=== PATIENT | male | born 1945 | race Caucasian/White ===

== ENCOUNTER 2017-06-01 12:26 | Inpatient (IN) | payer OTHER, MEDICARE ==
[~2017-06-01] VITALS: Ht 177.8 cm; Wt 106.6 kg
[2017-06-01] VITALS (8 sets, daily range): BP systolic 148–189; BP diastolic 74–98; PULSE 70–82; RESP 16–18; TEMP 98.1–98.7; O2SAT 95–98
[~2017-06-01 12:26] MED LIST: ALLO300T2 PO; ASPI81TA21 PO; CALTTAB PO; CO Q100C9 PO; FERR324T4 PO; GABA300C3 PO; GLUCTAB6 PO; LIPI10TA PO; METO25 PO; OMEP20TA39 PO; SUPETAB30 PO; TAMS0.4C67 PO; VITA100017 PO; VITA400C70 PO; WAL-10TA2 PO; [UNRECOGNIZED DRUG - OTHER]
[2017-06-01] MEDS ORDERED: SODIUM CHLOR 0.9% 1000 ML INJ 1,000 ML IV SCH (13:02)
[2017-06-01] MEDS ORDERED: ONDANSETRON HCL 4 MG/2 ML VIAL IVP ONE (13:15)
[2017-06-01] MEDS ORDERED: SODIUM CHLORIDE 0.9% FLUSH 10 ML FLUSH IV FLUSH PRN ×2 (13:15→17:45)
[2017-06-01] MEDS: MORPHINE SULFATE 4 MG/ML INJ IV PUSH PRN ×3 (13:35→17:07)
[2017-06-01 13:50] LABS: CHLORIDE 103 MEQ/L (98-107); POTASSIUM 3.9 MEQ/L (3.5-5.1); SODIUM (NA) 138 MEQ/L (136-145)
[2017-06-01] MEDS ORDERED: CLAR10CA3 PO (13:50)
[2017-06-01] MEDS ORDERED: THERH PO (13:50)
[2017-06-01] MEDS ORDERED: ALLO300T2 PO (13:50)
[2017-06-01] MEDS ORDERED: LIPI10TA PO (13:50)
[2017-06-01] MEDS ORDERED: TAMS5CAP PO (13:50)
[2017-06-01] MEDS ORDERED: VITA250T3 PO (13:50)
[2017-06-01] MEDS ORDERED: COEN1CAP PO (13:50)
[2017-06-01] MEDS ORDERED: ASPI81CH CHEW (13:50)
[2017-06-01] MEDS ORDERED: OMEP20TA PO (13:50)
[2017-06-01] MEDS ORDERED: METO25TA3 PO (13:50)
[2017-06-01] MEDS ORDERED: GABA300C5 PO (13:50)
[2017-06-01] MEDS ORDERED: CALTCHW5 PO (13:50)
[2017-06-01 13:54] LABS: ANION GAP 6 MEQ/L (5-15); BICARBONATE 29.3 MEQ/L (21.0-32.0); BLOOD UREA NITROGEN 18 MG/DL (7-18)
--- NOTE | 2017-06-01 13:54 | PD ---
HPI . Abdominal pain Chief Complaint: Abdominal Pain Time Seen by Provider: 13:02 Travel History International Travel<30 days: No Contact w/Intl Traveler<30days: No Traveled to known affect area: No History of Present Illness HPI This patient presents with a chief complaint of diffuse abdominal pain. Onset was 3 days ago after eating supper. The pain improved by the next day and he played golf. However, the pain became acutely worse at night's been getting progressively worse since that time. He states that he has not had a bowel movement in 3 days. He is eating but his appetite is poor. He has not had any vomiting. He states that his abdomen feels bloated and that his pants are very tight. He rates the pain 9/10. No modifying factors. Previous similar episodes. He has had a previous hernia repair. PFSH Past Medical History Hx Anticoagulant Therapy: Yes (BABY ASA DAILY) Arthritis: Yes Asthma: Yes ( CHILD) Heart Rhythm Problems: No Cancer: No Cardiac Catheterization: Yes (vessel X4) Cardiovascular Problems: Yes (BYPASS, HTN, CHOL) High Cholesterol: Yes Chest Pain: Yes Diabetes: No Diminished Hearing: No Endocrine: No Gastrointestinal Disorders: Yes GERD: Yes Genitourinary: No Hiatal Hernia: Yes Hypertension: Yes Immune Disorder: No Musculoskeletal: No Neurologic: No Reproductive: No Respiratory: No Immunizations Current: Yes Influenza Vaccination: Yes Past Surgical History Abdominal Surgery: Yes (INGUINAL HERNIA ) Cardiac Surgery: No Coronary Artery Bypass Graft: Yes (x4) Ear Surgery: No Endocrine Surgery: No Eye Surgery: No Genitourinary Surgery: No Oral Surgery: No Thoracic Surgery: Yes (LAMENECTOMY L3-5 ) Tonsillectomy: Yes Other Surgery: Yes (HERNIA REPAIR) Social History Alcohol Use: Yes (SOCIALLY) Tobacco Use: No Substance Use: No Allergies-Medications (Allergen,Severity, Reaction): Coded Allergies: No Known Allergies (Unverified , 06/01/17) Reported Meds & Prescriptions Reported Meds & Active Scripts Active Reported Therems-H (Multivitamin Hematinic Therapeutic) 1 Tab 1 Tab PO DAILY Therems-H (Multivitamin Hematinic Therapeutic) 1 Tab 1 Tab PO DAILY Flomax (Tamsulosin HCl) 0.4 Mg Cap 0.4 Mg PO DAILY Omeprazole 20 Mg Tab 20 Mg PO DAILY Metoprolol Tartrate 25 Mg Tab 12.5 Mg PO BID Claritin (Loratadine) 10 Mg Cap 10 Mg PO DAILY Co Q-10 (Coenzyme Q10 (Ubidecarenone)) 100 Mg Cap 1 Tab PO DAILY Gabapentin 300 Mg Cap 300 Mg PO DAILY Caltrate 600+D Chew (Calcium Carbonate-Vitamin D Chew) 600-400 Mg-Unit Chew 1 Tab PO DAILY Lipitor (Atorvastatin Calcium) 10 Mg Tab 10 Mg PO HS Aspirin 81 Mg Chew 81 Mg CHEW DAILY Vitamin C (Ascorbic Acid) 250 Mg Tab 500 Mg PO DAILY Allopurinol 300 Mg Tab 150 Mg PO DAILY Review of Systems Except as stated in HPI: all other systems reviewed are Neg General / Constitutional: No: Fever, Chills Cardiovascular: No: Chest Pain or Discomfort Respiratory: No: Shortness of Breath Gastrointestinal: Positive: Abdominal Pain, Constipation, No: Nausea, Vomiting , Diarrhea Genitourinary: No: Urgency, Frequency, Dysuria Physical Exam Narrative GENERAL: Patient is awake and alert. He looks uncomfortable. SKIN: warm/dry. No rash or lesions. HEAD: Normocephalic. Atraumatic. EYES: Pupils equal and round. No scleral icterus. No injection or drainage. ENT: No nasal bleeding or discharge. Mucous membranes pink and moist. NECK: Trachea midline. Full range of motion without pain.. CARDIOVASCULAR: Regular rate and rhythm. Heart sounds normal. Well-healed sternotomy scar. RESPIRATORY: No accessory muscle use. Clear to auscultation. Breath sounds equal bilaterally. GASTROINTESTINAL: Abdomen soft. Diffusely tender. No guarding or rebound. Bowel sounds present. MUSCULOSKELETAL: No obvious deformities. NEUROLOGICAL: Awake and alert. No obvious cranial nerve deficits. Motor grossly within normal limits. Normal speech. PSYCHIATRIC: Appropriate mood and affect; insight and judgment normal. Data Data Last Documented VS Vital Signs Date Time Temp Pulse Resp B/P (MAP) Pulse Ox O2 Delivery O2 Flow Rate FiO2 06/01/17 16:10 74 16 171/83 (112) 96 Room Air 06/01/17 12:29 98.1 Orders Orders Complete Blood Count With Diff (06/01/17 13:02) Comprehensive Metabolic Panel (06/01/17 13:02) Lipase (06/01/17 13:02) Lactic Acid (06/01/17 13:02) Ct Abd/Pel W Iv Contrast(Rout) (06/01/17 13:02) Iv Access Insert/Monitor (06/01/17 13:02) Morphine Inj (Morphine Inj) (06/01/17 13:15) Ondansetron Inj (Zofran Inj) (06/01/17 13:15) Sodium Chlor 0.9% 1000 Ml Inj (Ns 1000 M (06/01/17 13:02) Sodium Chloride 0.9% Flush (Ns Flush) (06/01/17 13:15) Sodium Chlor 0.9% 1000 Ml Inj (Ns 1000 M (06/01/17 14:15) Sodium Chlor 0.9% 1000 Ml Inj (Ns 1000 M (06/01/17 14:15) Iodixanol 320 Inj (Rad Ct) (Visipaque 32 (06/01/17 14:15) Urinalysis - C+S If Indicated (06/01/17 14:39) Consult Urology (06/01/17 ) Admit Order (Ed Use Only) (06/01/17 ) Vital Signs (Adult) Q4H (06/01/17 17:19) Diet Heart Healthy (06/01/17 Dinner) Activity Oob With Assistance (06/01/17 17:19) Notify Dr: Other (06/01/17 17:19) Labs Laboratory Tests Test 06/01/17 13:25 06/01/17 16:00 White Blood Count 17.0 TH/MM3 Red Blood Count 5.13 MIL/MM3 Hemoglobin 16.3 GM/DL Hematocrit 48.4 % Mean Corpuscular Volume 94.3 FL Mean Corpuscular Hemoglobin 31.8 PG Mean Corpuscular Hemoglobin Concent 33.8 % Red Cell Distribution Width 14.2 % Platelet Count 243 TH/MM3 Mean Platelet Volume 8.7 FL Neutrophils (%) (Auto) 78.5 % Lymphocytes (%) (Auto) 9.5 % Monocytes (%) (Auto) 10.8 % Eosinophils (%) (Auto) 0.3 % Basophils (%) (Auto) 0.9 % Neutrophils # (Auto) 13.3 TH/MM3 Lymphocytes # (Auto) 1.6 TH/MM3 Monocytes # (Auto) 1.8 TH/MM3 Eosinophils # (Auto) 0.1 TH/MM3 Basophils # (Auto) 0.2 TH/MM3 CBC Comment DIFF FINAL Differential Comment Blood Urea Nitrogen 18 MG/DL Creatinine 1.90 MG/DL Random Glucose 120 MG/DL Total Protein 7.9 GM/DL Albumin 3.5 GM/DL Calcium Level 9.3 MG/DL Alkaline Phosphatase 78 U/L Aspartate Amino Transf (AST/SGOT) 22 U/L Alanine Aminotransferase (ALT/SGPT) 25 U/L Total Bilirubin 1.6 MG/DL Sodium Level 138 MEQ/L Potassium Level 3.9 MEQ/L Chloride Level 103 MEQ/L Carbon Dioxide Level 29.3 MEQ/L Anion Gap 6 MEQ/L Estimat Glomerular Filtration Rate 35 ML/MIN Lactic Acid Level 1.3 mmol/L Lipase 166 U/L Urine Color YELLOW Urine Turbidity CLEAR Urine pH 5.5 Urine Specific [place] GREATER THAN 1.035 Urine Protein NEG mg/dL Urine Glucose (UA) NEG mg/dL Urine Ketones NEG mg/dL Urine Occult Blood NEG Urine Nitrite NEG Urine Bilirubin NEG Urine Leukocyte Esterase NEG Urine RBC 0-3 /hpf Urine WBC 0-2 /hpf Urine Squamous Epithelial Cells 0-5 /hpf Microscopic Urinalysis Comment CULT NOT INDICATED MDM Medical Decision Making Medical Screen Exam Complete: Yes Emergency Medical Condition: Yes Medical Record Reviewed: Yes (medical history is significant for hypertension, hyperlipidemia, coronary artery disease status post CABG and previous hernia repair.) Differential Diagnosis Differential diagnosis of abdominal pain includes but is not limited to gastritis, pancreatitis, hepatitis, gastroenteritis, gallbladder disease, constipation, urinary retention, UTI, peptic ulcer disease, diverticulitis or appendicitis Narrative Course This patient presents with abdominal pain and bloating. He has had no bowel movement in 3 days. Bowel obstruction needs to be ruled out. CBC & BMP Diagram 06/01/17 13:25 Total Protein 7.9, Albumin 3.5, Calcium Level 9.3, Alkaline Phosphatase 78, Aspartate Amino Transf (AST/SGOT) 22, Alanine Aminotransferase (ALT/SGPT) 25, Total Bilirubin 1.6 H He has developed ARF. LA 1.3 Sepsis Criteria SIRS Criteria (2 or more): WBC > 00292, < 4000 or > 10% bands Physician Communication Physician Communication Dr. Yi, urology, will see in consultation. He has no further recommendations acutely other than pain control Dr. Morrow, hospitalist, will admit. Diagnosis Primary Impression: Abdominal pain Qualified Codes: R10.84 - Generalized abdominal pain Additional Impressions: Leukocytosis Qualified Codes: D72.829 - Elevated white blood cell count, unspecified Acute renal failure Qualified Codes: N17.9 - Acute kidney failure, unspecified Admitting Information Admitting Physician Requests: Admit Condition: Stable Nancy Thomas MD Jun 01, 2017 13:54
[2017-06-01 13:55] LABS: AUTOMATED NEUTROPHIL # 13.3 TH/MM3 (1.8-7.7); BASOPHIL # 0.2 TH/MM3 (0-0.2); BASOPHIL % 0.9 % (0.0-2.0); EOSINOPHIL # 0.1 TH/MM3 (0-0.4); EOSINOPHIL % 0.3 % (0.0-4.0); HEMATOCRIT 48.4 % (39.0-51.0); LYMPH % 9.5 % (9.0-44.0); LYMPHOCYTE # 1.6 TH/MM3 (1.0-4.8); MEAN CELL VOLUME 94.3 FL (80.0-100.0); MEAN CORPUSCULAR HEMOGLOBIN 31.8 PG (27.0-34.0); MEAN CORPUSCULAR HGB CONC 33.8 % (32.0-36.0); MONO % 10.8 % (0.0-8.0); NEUT % 78.5 % (16.0-70.0); PLATELET COUNT 243 TH/MM3 (150-450); RED BLOOD COUNT 5.13 MIL/MM3 (4.50-5.90); RED CELL DISTRIBUTION WIDTH 14.2 % (11.6-17.2)
[2017-06-01 13:57] LABS: ALT (GPT) 25 U/L (12-78); AST (GOT) 22 U/L (15-37); GLOMERULAR FILTRATION RATE 35 ML/MIN (>89); HEMO FLAGS DIFF FINAL
[2017-06-01 13:58] LABS: TOTAL BILIRUBIN ADULT 1.6 MG/DL (0.2-1.0)
[2017-06-01 14:00] LABS: ALKALINE PHOSPHATASE 78 U/L (45-117)
[2017-06-01] MEDS ORDERED: IODIXANOL 320 MG/ML 10 ML VIAL (for Rad CT) IVCONTRAST ONE (14:15)
--- NOTE | 2017-06-01 14:36 | RADRPT ---
EXAM DATE/TIME: 06/01/2017 14:11 [facility] COMPARISON: No previous studies available for comparison. INDICATIONS : Abdominal pain radiating to the back. IV CONTRAST: 95 cc Visipaque (iodixanol) IV ORAL CONTRAST: No oral contrast ingested. RADIATION DOSE: 21.35 CTDIvol (mGy) MEDICAL HISTORY : Cardiovascular disease. Hypertension. Hernia, hiatal. SURGICAL HISTORY : Inguinal hernia repair. CABG ENCOUNTER: Initial ACUITY: 3 days PAIN SCALE: 4/10 LOCATION: abdomen TECHNIQUE: Volumetric scanning of the abdomen and pelvis was performed. Using automated exposure control and ad justment of the mA and/or kV according to patient size, radiation dose was kept as low as reasonably achievable to obtain optimal diagnostic quality images. DICOM format image data is available electro nically for review and comparison. FINDINGS: LOWER LUNGS: Linear parenchymal opacity in the left lung base. LIVER: Homogeneous density without lesion. There is no dilation of the biliary tree. No calcified gallston es. SPLEEN: Normal size without lesion. PANCREAS: Within normal limits. KIDNEYS: Moderate to severe right-sided hydronephrosis extending to the proximal ureter. There is a 6 x 9 mm d ensely calcified calculus in the proximal ureter. There is a second densely calcified apparent calcul us in the mid right ureter measuring 6 x 8 mm. There is extensive perinephric stranding on the right. Additional nonobstructing calyceal calculi are seen bilaterally. They range in size from 3-6 mm on t he right and 2-11 mm on the left. There are multiple bilateral renal cysts some of which are too smal l to fully characterize. Largest on the right is noted anteriorly near its superior pole and measures 2.1 cm largest on the left is noted laterally near the superior pole and measures 7.9 cm. ADRENAL GLANDS: Within normal limits. VASCULAR: There is no aortic aneurysm. BOWEL/MESENTERY: Moderate sigmoid diverticulosis with scattered diverticula in the descending colon. No significant in flammatory change to suggest diverticulitis. Bowel appears otherwise unremarkable. No free fluid or d rainable fluid collection. ABDOMINAL WALL: Within normal limits. RETROPERITONEUM: There is no lymphadenopathy. BLADDER: No wall thickening or mass. REPRODUCTIVE: Nonspecific prostatic enlargement. INGUINAL: There is no lymphadenopathy or hernia. MUSCULOSKELETAL: Degenerative spondylosis in the lower lumbar spine was prominently at L3-S1. CONCLUSION: 1. Moderate to severe right-sided hydronephrosis secondary to obstructing 6 x 9 mm densely calcified proximal ureteral calculus. Apparent second calculus more distally in the mid right ureter measuring 6 x 8 mm. 2. Multiple additional nonobstructing calyceal calculi ranging in size from 3-6 mm on the right and 2 -11 mm on the left. 3. Multiple bilateral renal cysts some of which are too small to fully characterize. Largest on the l eft measures up to 7.9 cm and the largest on the right measures up to 2.1 cm. 4. Additional ancillary findings include colonic diverticulosis and degenerative spondylosis of the l ower lumbar spine. Srini Gupta MD on June 01, 2017 at 14:24 Board Certified Radiologist. This report was verified electronically.
[2017-06-01] MEDS: SODIUM CHLOR 0.9% 1000 ML INJ 1,000 ML IV SCH ×6 (14:53→20:05)
[2017-06-01 16:24] LABS: BLOOD, URINE NEG (NEG); GLUCOSE,URINE NEG (NEG); KETONE, URINE NEG (NEG); NITRITE,URINE NEG (NEG); PH, URINE 5.5 (5.0-8.5)
[2017-06-01 17:00] LABS: URINE COLOR YELLOW (YELLW/STRAW)
[2017-06-01 17:01] LABS: COMMENT (UR) CULT NOT INDICATED; CULTURE IF INDICATED CULT NOT INDICATED; RBC, URINE 0-3 /hpf (0-3); SQUAMOUS EPITHELIAL CELL URINE 0-5 /hpf (0-5); WBC, URINE 0-2 /hpf (0-5)
[2017-06-01] MEDS ORDERED: ONDANSETRON HCL 4 MG/2 ML VIAL IVP PRN (17:45)
[2017-06-01] MEDS ORDERED: ACETAMINOPHEN 325 MG TAB PO PRN (17:45)
[2017-06-01] MEDS ORDERED: NALOXONE HCL 0.4 MG/ML AMP IV PUSH PRN (17:45)
[2017-06-01] MEDS ORDERED: PILL SPLITTER OTHER PRN (18:00)
--- NOTE | 2017-06-01 18:14 | HHI.HP ---
HPI Service [facility] Primary Care Physician [facility] Admission Diagnosis kidney stone, leukocytosis, ARF Diagnoses: Chief Complaint: Abdominal pain Travel History International Travel<30 Days: No Contact w/Intl Traveler <30 Da: No Traveled to Known Affected Are: No History of Present Illness This patient is a pleasant 71-year-old gentleman with history of coronary artery disease and gout who has had 10/10 abdominal pain improved with IV morphine here n the ER. Patient says that he had increasing discomfort over the last 3 days and the pain became worse today. He has not had a bowel movement in 3 days that this is not unusual to him as he has usually taken a probiotic for more regular bowel movements in every so often he has 3 days of not having a regular bowel movement. He has not eaten very much with says his appetite is poor the last 3 days as well. He notes no fevers or chills. He is not having nausea or vomiting. He has no dysuria. 5 years ago he was told he had kidney stones but they had not given him a problem. Here he did have a CT abdomen and pelvis which did show significant right sided hydronephrosis secondary to obstructing stone. He also has multiple cysts in the kidneys. Patient has come to the emergency for further evaluation. Review of Systems Constitutional: DENIES: Diaphoretic episodes, Fatigue, Fever, Weight gain, Weight loss, Chills, Dizziness, Change in appetite, Night Sweats Endocrine: DENIES: Heat/cold intolerance, Polydipsia, Polyuria, Polyphagia Eyes: DENIES: Blurred vision, Diplopia, Eye inflammation, Eye pain, Vision loss , Photosensitivity, Double Vision Ears, nose, mouth, throat: DENIES: Tinnitus, Hearing loss, Vertigo, Nasal discharge, Oral lesions, Throat pain, Hoarseness, Ear Pain, Running Nose, Epistaxis, Sinus Pain, Toothache, Odynophagia Respiratory: DENIES: Apneas, Cough, Snoring, Wheezing, Hemoptysis, Sputum production, Shortness of breath Cardiovascular: DENIES: Chest pain, Palpitations, Syncope, Dyspnea on Exertion , PND, Lower Extremity Edema, Orthopnea, Claudication Gastrointestinal: COMPLAINS OF: Abdominal pain, DENIES: Black stools, Bloody stools, Constipation, Diarrhea, Nausea, Vomiting, Difficulty Swallowing, Anorexia Genitourinary: DENIES: Sexual dysfunction, Urinary frequency, Urinary incontinence, Urgency, Hematuria, Dysuria, Nocturia, Penile Discharge, Testicular Pain, Testicular Swelling Musculoskeletal: DENIES: Joint pain, Muscle aches, Stiffness, Joint Swelling, Back pain, Neck pain Integumentary: COMPLAINS OF: Rash (left knee and left elbow, salmon colored macular discoloration similar to psoriasis), DENIES: Abnormal pigmentation, Nail changes, Pruritus Hematologic/lymphatic: DENIES: Bruising, Lymphadenopathy Immunologic/allergic: DENIES: Eczema, Urticaria Neurologic: DENIES: Abnormal gait, Headache, Localized weakness, Paresthesias, Seizures, Speech Problems, Tremor, Poor Balance Psychiatric: DENIES: Anxiety, Confusion, Mood changes, Depression, Hallucinations, Agitation, Suicidal Ideation, Homicidal Ideation, Delusions Except as stated in HPI: all other systems reviewed are Neg Past Family Social History Past Medical History GERD Gout Chronic allergies Coronary artery disease Benign prostatic hyperplasia Hyperlipidemia Past Surgical History Laminectomy Hernia repair and cardiac bypass Tonsillectomy Reported Medications Reviewed in the EMR Allergies: Coded Allergies: No Known Allergies (Unverified , 06/01/17) Active Ordered Medications Reviewed in the EMR Family History Mother of unknown causes, father had some type of dementia Social History Reviewed and patient denies tobacco or alcohol dependency, golfs daily Physical Exam Vital Signs Vital Signs Date Time Temp Pulse Resp B/P (MAP) Pulse Ox O2 Delivery O2 Flow Rate FiO2 06/01/17 17:21 16 06/01/17 16:10 74 16 171/83 (112) 96 Room Air 06/01/17 15:30 77 16 170/89 (116) 95 Room Air 06/01/17 14:55 78 16 183/98 (126) 98 Room Air 06/01/17 13:37 77 18 170/90 (116) 98 Room Air 06/01/17 12:29 98.1 74 16 189/86 (120) 95 Physical Exam GENERAL: This is a well-nourished, well-developed patient, in no apparent distress. SKIN: No rashes, ecchymoses or lesions. Cool and dry. HEAD: Atraumatic. Normocephalic. No temporal or scalp tenderness. EYES: Pupils equal round and reactive. Extraocular motions intact. No scleral icterus. No injection or drainage. ENT: Nose without bleeding, purulent drainage or septal hematoma. Throat without erythema, tonsillar hypertrophy or exudate. Uvula midline. Airway patent. NECK: Trachea midline. No JVD or lymphadenopathy. Supple, nontender, no meningeal signs. CARDIOVASCULAR: Regular rate and rhythm without murmurs, gallops, or rubs. RESPIRATORY: Clear to auscultation. Breath sounds equal bilaterally. No wheezes , rales, or rhonchi. GASTROINTESTINAL: hypoactive BS, Abdomen soft, non-tender, nondistended. No hepato-splenomegaly, or palpable masses. No guarding. Flank pain MUSCULOSKELETAL: Extremities without clubbing, cyanosis, or edema. No joint tenderness, effusion, or edema noted. No calf tenderness. Negative Homans sign bilaterally. NEUROLOGICAL: Awake and alert. Cranial nerves II through XII intact. Motor and sensory grossly within normal limits. Five out of 5 muscle strength in all muscle groups. Normal speech. Laboratory Laboratory Tests Test 06/01/17 13:25 06/01/17 16:00 White Blood Count 17.0 Red Blood Count 5.13 Hemoglobin 16.3 Hematocrit 48.4 Mean Corpuscular Volume 94.3 Mean Corpuscular Hemoglobin 31.8 Mean Corpuscular Hemoglobin Concent 33.8 Red Cell Distribution Width 14.2 Platelet Count 243 Mean Platelet Volume 8.7 Neutrophils (%) (Auto) 78.5 Lymphocytes (%) (Auto) 9.5 Monocytes (%) (Auto) 10.8 Eosinophils (%) (Auto) 0.3 Basophils (%) (Auto) 0.9 Neutrophils # (Auto) 13.3 Lymphocytes # (Auto) 1.6 Monocytes # (Auto) 1.8 Eosinophils # (Auto) 0.1 Basophils # (Auto) 0.2 CBC Comment DIFF FINAL Differential Comment Blood Urea Nitrogen 18 Creatinine 1.90 Random Glucose 120 Total Protein 7.9 Albumin 3.5 Calcium Level 9.3 Alkaline Phosphatase 78 Aspartate Amino Transf (AST/SGOT) 22 Alanine Aminotransferase (ALT/SGPT) 25 Total Bilirubin 1.6 Sodium Level 138 Potassium Level 3.9 Chloride Level 103 Carbon Dioxide Level 29.3 Anion Gap 6 Estimat Glomerular Filtration Rate 35 Lactic Acid Level 1.3 Lipase 166 Urine Color YELLOW Urine Turbidity CLEAR Urine pH 5.5 Urine Specific [place] GREATER THAN 1.035 Urine Protein NEG Urine Glucose (UA) NEG Urine Ketones NEG Urine Occult Blood NEG Urine Nitrite NEG Urine Bilirubin NEG Urine Leukocyte Esterase NEG Urine RBC 0-3 Urine WBC 0-2 Urine Squamous Epithelial Cells 0-5 Microscopic Urinalysis Comment CULT NOT INDICATED Result Diagram: 06/01/17 1325 06/01/17 1325 Imaging Last Impressions Abdomen/Pelvis CT 06/01/17 1302 Signed Impressions: Service Date/Time: Thursday, June 01, 2017 14:11 - CONCLUSION: 1. Moderate to severe right-sided hydronephrosis secondary to obstructing 6 x 9 mm densely calcified proximal ureteral calculus. Apparent second calculus more distally in the mid right ureter measuring 6 x 8 mm. 2. Multiple additional nonobstructing calyceal calculi ranging in size from 3-6 mm on the right and 2-11 mm on the left. 3. Multiple bilateral renal cysts some of which are too small to fully characterize. Largest on the left measures up to 7.9 cm and the largest on the right measures up to 2.1 cm. 4. Additional ancillary findings include colonic diverticulosis and degenerative spondylosis of the lower lumbar spine. Srini Gupta MD Caprini VTE Risk Assessment Caprini VTE Risk Assessment: Mod/High Risk (score >= 2) Caprini Risk Assessment Model Point Value = 1 Point Value = 2 Point Value = 3 Point Value = 5 Age 41-60 Minor surgery BMI > 25 kg/m2 Swollen legs Varicose veins or History of unexplained or recurrent spontaneous Oral contraceptives or hormone replacement Sepsis (< 1 month) Serious lung disease, including pneumonia (< 1 month) Abnormal pulmonary function Acute myocardial infarction Congestive heart failure (< 1 month) History of inflammatory bowel disease Medical patient at bed rest Age 61-74 Arthroscopic surgery Major open surgery (> 45 min) Laparoscopic surgery (> 45 min) Malignancy Confined to bed (> 72 hours) Immobilizing plaster cast Central venous access Age >= 75 History of VTE Family history of VTE Factor V Leiden Prothrombin [id number] Lupus anticoagulant Anticardiolipin antibodies Elevated serum homocysteine Heparin-induced thrombocytopenia Other congenital or acquired thrombophilia Stroke (< 1 month) Elective arthroplasty Hip, pelvis, or leg fracture Acute spinal cord injury (< 1 month) Prophylaxis Regimen Total Risk Factor Score Risk Level Prophylaxis Regimen 0-1 Low Early ambulation 2 Moderate Order ONE of the following: *Sequential Compression Device (SCD) *Heparin 5000 units SQ BID 3-4 Higher Order ONE of the following medications: *Heparin 5000 units SQ TID *Enoxaparin/Lovenox 40 mg SQ daily (WT < 150 kg, CrCl > 30 mL/min) *Enoxaparin/Lovenox 30 mg SQ daily (WT < 150 kg, CrCl > 10-29 mL/min) *Enoxaparin/Lovenox 30 mg SQ BID (WT < 150 kg, CrCl > 30 mL/min) AND/OR *Sequential Compression Device (SCD) 5 or more Highest Order ONE of the following medications: *Heparin 5000 units SQ TID (Preferred with Epidurals) *Enoxaparin/Lovenox 40 mg SQ daily (WT < 150 kg, CrCl > 30 mL/min) *Enoxaparin/Lovenox 30 mg SQ daily (WT < 150 kg, CrCl > 10-29 mL/min) *Enoxaparin/Lovenox 30 mg SQ BID (WT < 150 kg, CrCl > 30 mL/min) AND *Sequential Compression Device (SCD) Assessment and Plan Problem List: (1) Uropathy, obstructive ICD Code: N13.9 - Obstructive and reflux uropathy, unspecified Plan: right sided hydronephrosis with 6x9 obstructing stone IVF IV Morphine Urology 'strainer (2) GERD (gastroesophageal reflux disease) ICD Code: K21.9 - GERD (gastroesophageal reflux disease) Status: Acute Plan: Continue with proton pump inhibitor (3) HTN (hypertension) ICD Code: I10 - HTN (hypertension) Status: Acute Plan: Continue metoprolol,hydralazine as needed (4) Acute renal failure ICD Code: N17.9 - Acute kidney failure, unspecified Status: Acute Plan: Likely obstructive, continue IV fluids and follow for stone evaluation by urology Avoid further nephrotoxic injury (5) Coronary artery disease ICD Code: I25.10 - Atherosclerotic heart disease of [place] coronary artery without angina pectoris Plan: Patient taking aspirin, Lipitor, metoprolol History of cardiac bypass Assessment and Plan Plan of care to be determined by Hospital course Code Status Full code Discussed Condition With Patient, GRACIE Salazar Physician Certification 2 Midnight Certification Type: Admission for Inpatient Services Order for Inpatient Services The services are ordered in accordance with Medicare regulations or non- Medicare payer requirements, as applicable. In the case of services not specified as inpatient-only, they are appropriately provided as inpatient services in accordance with the 2-midnight benchmark. Estimated LOS (days): 3 3 days is the estimated time the patient will need to remain in the hospital, assuming treatment plan goals are met and no additional complications. Post-Hospital Plan: Home Problem Qualifiers (1) Acute renal failure: Qualified Codes: N17.9 - Acute kidney failure, unspecified Erica Morrow MD Jun 01, 2017 18:14
[2017-06-01] MEDS ORDERED: hydrALAZINE HCL 20 MG/ML VIAL IV PUSH PRN (18:15)
[2017-06-01] MEDS: TAMSULOSIN HCL 0.4 MG CAP PO SCH (18:29)
[2017-06-01] MEDS: PANTOPRAZOLE SOD 20 MG DELAYED RELEASE TAB PO SCH (18:29)
[2017-06-01] MEDS: SODIUM CHLORIDE 0.9% FLUSH 10 ML FLUSH IV FLUSH SCH (21:55)
[2017-06-01] MEDS: DOCUSATE SODIUM 100 MG CAP PO SCH (21:57)
[2017-06-01] MEDS: LACTOBACILLUS ACIDOPHILUS TAB PO SCH (21:57)
[2017-06-01] MEDS: METOPROLOL TARTRATE 25 MG TAB PO SCH (21:57)
[2017-06-01] MEDS: MORPHINE SULFATE 2 MG/ML INJ IV PUSH PRN (23:46)
[2017-06-02] VITALS: BP 144/88; PULSE 77; RESP 20; TEMP 98.7; O2SAT 93
[2017-06-02] MEDS: SODIUM CHLOR 0.9% 1000 ML INJ 1,000 ML IV SCH ×3 (04:19→23:13)
[2017-06-02] MEDS: MORPHINE SULFATE 2 MG/ML INJ IV PUSH PRN ×2 (06:33→12:00)
[2017-06-02 06:40] LABS: AUTOMATED NEUTROPHIL # 12.1 TH/MM3 (1.8-7.7); BASOPHIL # 0.1 TH/MM3 (0-0.2); BASOPHIL % 0.5 % (0.0-2.0); EOSINOPHIL # 0.1 TH/MM3 (0-0.4); EOSINOPHIL % 0.6 % (0.0-4.0); HEMATOCRIT 42.3 % (39.0-51.0); LYMPH % 11.7 % (9.0-44.0); LYMPHOCYTE # 1.8 TH/MM3 (1.0-4.8); MEAN CELL VOLUME 92.4 FL (80.0-100.0); MEAN CORPUSCULAR HEMOGLOBIN 30.9 PG (27.0-34.0); MEAN CORPUSCULAR HGB CONC 33.4 % (32.0-36.0); MONO % 9.1 % (0.0-8.0); NEUT % 78.1 % (16.0-70.0); PLATELET COUNT 224 TH/MM3 (150-450); RED BLOOD COUNT 4.57 MIL/MM3 (4.50-5.90); RED CELL DISTRIBUTION WIDTH 13.6 % (11.6-17.2); WHITE BLOOD COUNT 15.5 TH/MM3 (4.0-11.0)
--- NOTE | 2017-06-02 06:45 | RADRPT ---
EXAM DATE/TIME: 06/02/2017 05:40 [facility] COMPARISON: CT ABDOMEN & PELVIS W CONTRAST, June 01, 2017, 14:11. INDICATIONS : Evaluate for renal calculi. MEDICAL HISTORY : Gastroesophageal reflux disease. SURGICAL HISTORY : Hernia repair. ENCOUNTER: Subsequent ACUITY: 2 days PAIN SCORE: 4/10 LOCATION: abdomen, all quadrants. FINDINGS: Supine view of the abdomen was performed. Copious amount of stool limits evaluation. Gaseous distenti on of multiple bowel loops. A 6 mm right-sided and 11 mm left sided renal calculi are seen. No abnorm al massesor organomegaly is seen. The osseous structures are unremarkable. CONCLUSION: 1. Bilateral renal calculi are difficult to visualize. Deric Joel MD on June 02, 2017 at 6:41 Board Certified Radiologist. This report was verified electronically.
[2017-06-02 06:48] LABS: CHLORIDE 107 MEQ/L (98-107); SODIUM (NA) 140 MEQ/L (136-145)
[2017-06-02 06:50] LABS: HEMO FLAGS DIFF FINAL
[2017-06-02 07:39] LABS: ALKALINE PHOSPHATASE 63 U/L (45-117); ALT (GPT) 17 U/L (12-78); ANION GAP 7 MEQ/L (5-15); AST (GOT) 18 U/L (15-37); BICARBONATE 25.8 MEQ/L (21.0-32.0); BLOOD UREA NITROGEN 16 MG/DL (7-18); GLOMERULAR FILTRATION RATE 40 ML/MIN (>89); TOTAL BILIRUBIN ADULT 1.9 MG/DL (0.2-1.0)
[2017-06-02 08:00] VITALS: BP 175/87; PULSE 74; RESP 18; TEMP 99.3; O2SAT 95
[2017-06-02] MEDS: SODIUM CHLORIDE 0.9% FLUSH 10 ML FLUSH IV FLUSH SCH ×2 (09:00→20:21)
[2017-06-02] MEDS: DOCUSATE SODIUM 100 MG CAP PO SCH ×2 (09:34→20:24)
[2017-06-02] MEDS: LACTOBACILLUS ACIDOPHILUS TAB PO SCH ×2 (09:34→20:24)
[2017-06-02] MEDS: METOPROLOL TARTRATE 25 MG TAB PO SCH ×2 (09:34→20:24)
[2017-06-02] MEDS: TAMSULOSIN HCL 0.4 MG CAP PO SCH (09:34)
[2017-06-02] MEDS: ALLOPURINOL 300 MG TAB PO SCH (09:35)
[2017-06-02] MEDS: PANTOPRAZOLE SOD 20 MG DELAYED RELEASE TAB PO SCH (09:35)
[2017-06-02 12:00] VITALS: BP 144/74; PULSE 74; RESP 16; TEMP 99; O2SAT 97
--- NOTE | 2017-06-02 13:25 | HHI.PR ---
Subjective Remarks The patient said that he has some abdominal pain in the lower portion that comes in waves. She says the pain medication does not work that well. He is hoping to speak with a urologist soon. He said that his urine has become more normal without any blood in it. Objective Vitals Vital Signs Date Time Temp Pulse Resp B/P (MAP) Pulse Ox O2 Delivery O2 Flow Rate FiO2 06/02/17 08:00 99.3 74 18 175/87 (116) 95 06/02/17 00:00 98.7 77 20 144/88 (106) 93 06/02/17 00:00 98.7 77 20 144/88 (106) 93 06/01/17 20:00 98.7 76 18 148/74 (98) 96 06/01/17 20:00 98.7 76 18 148/74 (98) 96 06/01/17 18:44 06/01/17 18:35 98.7 70 18 154/95 (114) 96 06/01/17 18:17 82 16 170/88 (115) 97 Room Air 06/01/17 17:21 16 06/01/17 16:10 74 16 171/83 (112) 96 Room Air 06/01/17 15:30 77 16 170/89 (116) 95 Room Air 06/01/17 14:55 78 16 183/98 (126) 98 Room Air 06/01/17 13:37 77 18 170/90 (116) 98 Room Air I/O 06/01/17 06/01/17 06/01/17 06/02/17 06/02/17 06/02/17 07:00 15:00 23:00 07:00 15:00 23:00 Intake Total 3360 ml Output Total 180 ml Balance 3180 ml Intake Oral 360 ml IV Total 3000 ml Output Urine Total 180 ml # Voids 2 Result Diagram: 06/02/17 0555 06/02/17 0555 Imaging Last Impressions Abdomen X-Ray 06/02/17 0600 Signed Impressions: Service Date/Time: Friday, June 02, 2017 05:40 - CONCLUSION: 1. Bilateral renal calculi are difficult to visualize. Deric Joel MD Abdomen/Pelvis CT 06/01/17 1302 Signed Impressions: Service Date/Time: Thursday, June 01, 2017 14:11 - CONCLUSION: 1. Moderate to severe right-sided hydronephrosis secondary to obstructing 6 x 9 mm densely calcified proximal ureteral calculus. Apparent second calculus more distally in the mid right ureter measuring 6 x 8 mm. 2. Multiple additional nonobstructing calyceal calculi ranging in size from 3-6 mm on the right and 2-11 mm on the left. 3. Multiple bilateral renal cysts some of which are too small to fully characterize. Largest on the left measures up to 7.9 cm and the largest on the right measures up to 2.1 cm. 4. Additional ancillary findings include colonic diverticulosis and degenerative spondylosis of the lower lumbar spine. Srini Gupta MD Objective Remarks GENERAL: This is a well-nourished, well-developed patient, in no apparent distress. SKIN: No rashes, ecchymoses or lesions. Cool and dry. HEAD: Atraumatic. Normocephalic. No temporal or scalp tenderness. EYES: Pupils equal round and reactive. Extraocular motions intact. No scleral icterus. No injection or drainage. ENT: Nose without bleeding, purulent drainage or septal hematoma. Throat without erythema, tonsillar hypertrophy or exudate. Uvula midline. Airway patent. NECK: Trachea midline. No JVD or lymphadenopathy. Supple, nontender, no meningeal signs. CARDIOVASCULAR: Regular rate and rhythm without murmurs, gallops, or rubs. RESPIRATORY: Clear to auscultation. Breath sounds equal bilaterally. No wheezes , rales, or rhonchi. GASTROINTESTINAL: Abdomen soft, slightly tender in the lower quadrants, nondistended. No hepato-splenomegaly, or palpable masses. No guarding. MUSCULOSKELETAL: Extremities without clubbing, cyanosis, or edema. No joint tenderness, effusion, or edema noted. NEUROLOGICAL: Awake and alert. Cranial nerves II through XII intact. Motor and sensory grossly within normal limits. Five out of 5 muscle strength in all muscle groups. Normal speech. Medications and IVs Current Medications Medications (Trade) Dose Ordered Sig/Fahad Route Start Time Stop Time Status Last Admin Sodium Chloride 1,000 ml @ 100 mls/hr Q10H IV 06/01/17 17:45 06/02/17 04:19 (NS Flush) 2 ml UNSCH PRN IV FLUSH 06/01/17 17:45 (NS Flush) 2 ml BID IV FLUSH 06/01/17 21:00 (Tylenol) 650 mg Q4H PRN PO 06/01/17 17:45 (Zofran Inj) 4 mg Q6H PRN IVP 06/01/17 17:45 (Narcan Inj) 0.4 mg UNSCH PRN IV PUSH 06/01/17 17:45 (Morphine Inj) 2 mg Q4H PRN IV PUSH 06/01/17 17:45 06/02/17 12:00 (Zyloprim) 150 mg DAILY PO 06/02/17 09:00 06/02/17 09:35 (Lopressor) 12.5 mg BID PO 06/01/17 21:00 06/02/17 09:34 (Flomax) 0.4 mg DAILY PO 06/01/17 18:00 06/02/17 09:34 (Protonix) 20 mg DAILY PO 06/01/17 18:00 06/02/17 09:35 (Pill Splitter) 1 ea UNSCH PRN OTHER 06/01/17 18:00 (Colace) 100 mg BID PO 06/01/17 21:00 06/02/17 09:34 (Apresoline Inj) 5 mg Q4H PRN IV PUSH 06/01/17 18:15 (Lactinex) 1 tab Q12HR PO 06/01/17 21:00 06/02/17 09:34 A/P Problem List: (1) Uropathy, obstructive ICD Code: N13.9 - Obstructive and reflux uropathy, unspecified (2) GERD (gastroesophageal reflux disease) ICD Code: K21.9 - GERD (gastroesophageal reflux disease) Status: Acute (3) HTN (hypertension) ICD Code: I10 - HTN (hypertension) Status: Acute (4) Acute renal failure ICD Code: N17.9 - Acute kidney failure, unspecified Status: Acute (5) Coronary artery disease ICD Code: I25.10 - Atherosclerotic heart disease of [place] coronary artery without angina pectoris Assessment and Plan Uropathy Obstructive. CT showed: Moderate to severe right-sided hydronephrosis secondary to obstructing 6 x 9 mm densely calcified proximal ureteral calculus; Apparent second calculus more distally in the mid right ureter measuring 6 x 8 mm; Multiple additional nonobstructing calyceal calculi ranging in size from 3-6 mm on the right and 2-11 mm on the left; Multiple bilateral renal cysts some of which are too small to fully characterize; Largest on the left measures up to 7.9 cm and the largest on the right measures up to 2.1 cm. - IVFs. - IV Morphine. - Urine strainer. - urology consult pending. HTN Blood pressure has been elevated. Exacerbated by pain. - Continue metoprolol. - hydralazine as needed. - pain control. Acute renal failure Likely obstructive, s/t above. - continue IV fluids and follow for stone evaluation by urology. - Avoid further nephrotoxic injury. Coronary artery disease History of cardiac bypass. - continue home regimen. PPx: SCDs Discharge Planning Awaiting urology evaluation Problem Qualifiers (1) Acute renal failure: Qualified Codes: N17.9 - Acute kidney failure, unspecified Quan Ralph DO Jun 02, 2017 13:24
[2017-06-02] MEDS: MORPHINE SULFATE 4 MG/ML INJ IV PRN (15:29)
[2017-06-02 16:00] VITALS: BP 173/94; PULSE 79; RESP 18; TEMP 98.6; O2SAT 97
[2017-06-02] MEDS ORDERED: POLYETHYLENE GLYCOL 17 GM PKG PO PRN (18:00)
[2017-06-02] MEDS: ACETAMINOPHEN 1000 MG/100 ML 100 ML IV SCH (18:21)
--- NOTE | 2017-06-02 18:54 | MB ---
cc: KATHY PATTERSON MD DATE OF CONSULTATION 06/02/17 REASON FOR CONSULTATION 1. Right ureteral stone with mild hydronephrosis 2. Right flank pain 3. Bilateral nonobstructing stones 4. Renal cysts HISTORY OF PRESENT ILLNESS Mr. Vaca is a very pleasant 71-year-old gentleman who has history of coronary artery disease who presented to the ER yesterday with complaints of right-sided flank pain in the range of his upper abdomen the last two days described as sharp and stabbing, 10/10 at its worst. In the emergency room, he was given a dose of IV morphine which did improve the pain. He does states he has not had a bowel movement in the last three days which is unusual as he usually has a regular bowel movement every day. He also has a poor appetite the last few days as well. Denied any fevers, chills, no nausea or vomiting, dysuria, hematuria. In the emergency room, he had a CT of abdomen and pelvis without contrast done which showed nonobstructive stones as well as two separate right ureteral stones approximately 6 mm in size causing mild right hydronephrosis. Also, he was found to have a simple renal cyst. The patient subsequently was admitted for further evaluation. The patient states he was told five years ago that he had kidney stones, but he was asymptomatic at that time. Denies any family history of kidney stones or family history of prostate cancer. Currently his flank pain is much improved, but he is complaining of mostly epigastric discomfort and feels bloated. He denies any problems a urinating in the past. He states he has a good stream and has never had blood in his urine. He only gets up twice a night. REVIEW OF SYSTEMS See HPI otherwise all systems reviewed otherwise are negative. PAST MEDICAL HISTORY 1. Gastroesophageal reflux disease, 2. Gout, 3. Coronary artery disease 4. Benign prostatic hypertrophy 5. Hyperlipidemia PAST SURGICAL HISTORY 1. Cardiac bypass 2. Hernia repair 3. Laminectomy, 4. Tonsillectomy 5. Circumcision. ALLERGIES NO KNOWN DRUG ALLERGIES MEDICATIONS Home include 1. Claritin 2. Aspirin 81 mg daily. 3. Metoprolol 12.5 mg p.o. b.i.d. 4. Omeprazole 20 mg p.o. daily. 5. Allopurinol 150 mg p.o. daily. FAMILY HISTORY Denies urolithiasis or genitourinary malignancy. SOCIAL HISTORY Denies tobacco, alcohol or illicit drug use. He does golf daily. PHYSICAL EXAMINATION VITAL SIGNS: Temperature 99, pulse 74, respiratory rate 16, BP 144/74, 97% room air. GENERAL: He is alert and oriented times three in no apparent stress, pleasant cooperative gentleman who appears his stated age. HEENT: Normocephalic, atraumatic. NECK: Supple, trachea midline. No JVD. Eyes - no scleral icterus. Extraocular muscles intact. SKIN: Warm and dry. No ulcers or rashes seen. Mucous membranes pink and moist. LUNGS: Clear to auscultation bilaterally No wheezes, rales or rhonchi. HEART: Regular rate and rhythm without murmurs, gallops or rubs. ABDOMEN: Soft but slightly distended, nontender, positive bowel sounds. GENITOURINARY:: There is no CVA test bilaterally. Penis is circumcised. Testes descended bilaterally, normal in size and consistency without mass. RECTAL: Exam deferred at this time. EXTREMITIES: Nontender. No clubbing, cyanosis or edema. PSYCHIATRIC: Normal affect. Answers questions appropriately. NEUROLOGIC: Cranial nerves II-XII intact. Strengths 5/5 in all four extremities. LABORATORY DATA White count 15.5, hemoglobin 14.1, hematocrit 42.3, platelet count 224. Sodium 140, potassium 4.0, chloride 107, bicarb 25.5, BUN 16, creatinine 1.70, GFR 40. Urine was completely negative. IMAGING STUDIES CT pelvis without contrast images were reviewed, agree with radiologist's report. The patient has bilateral simple renal cysts, also has bilateral nonobstructing stones with the largest one on the left side approximately 1 cm in size. He also has right ureteral calculi one approximately 9 mm, the other one approximately 8 mm in size with mild hydronephrosis. ASSESSMENT The patient is a 71-year-old male who was admitted with abdominal pain and was found to have right ureteral calculi with mild hydronephrosis as well as bilateral nonobstructing stones. PLAN We will give patient regular diet and we will manage conservatively at this time. We will adjust his pain medications and give him Oxycodone and IV acetaminophen for pain. We will continue to strain his urine. Continue Flomax and IV fluids. He does have significant constipation so we will add MiraLax to help improve his bowel movements. Thank you for this consult. We will follow along with you. MD JEREMIAS Dey/ /5:58 PM /6:29 PM
[2017-06-02 20:00] VITALS: BP 132/64; PULSE 74; RESP 20; TEMP 98.2; O2SAT 94
[2017-06-03] MEDS: ACETAMINOPHEN 1000 MG/100 ML 100 ML IV SCH ×2 (00:15→06:16)
[2017-06-03 05:48] VITALS: BP 209/109; PULSE 73
[2017-06-03] MEDS: MORPHINE SULFATE 4 MG/ML INJ IV PRN (06:05)
[2017-06-03 06:45] VITALS: BP 172/76
[2017-06-03 07:43] LABS: HEMATOCRIT 39.9 % (39.0-51.0); MEAN CELL VOLUME 92.1 FL (80.0-100.0); MEAN CORPUSCULAR HGB CONC 33.7 % (32.0-36.0); PLATELET COUNT 210 TH/MM3 (150-450); RED BLOOD COUNT 4.34 MIL/MM3 (4.50-5.90); RED CELL DISTRIBUTION WIDTH 13.4 % (11.6-17.2); REVIEW FLAG FINAL; WHITE BLOOD COUNT 14.6 TH/MM3 (4.0-11.0)
[2017-06-03 07:53] LABS: POTASSIUM 3.5 MEQ/L (3.5-5.1)
[2017-06-03 08:00] VITALS: BP 164/82; PULSE 65; RESP 18; TEMP 97; O2SAT 94
[2017-06-03 08:08] LABS: BICARBONATE 24.5 MEQ/L (21.0-32.0); MAGNESIUM 1.9 MG/DL (1.5-2.5)
[2017-06-03] MEDS: METOPROLOL TARTRATE 25 MG TAB PO SCH (09:42)
[2017-06-03] MEDS: DOCUSATE SODIUM 100 MG CAP PO SCH (09:42)
[2017-06-03] MEDS: SODIUM CHLORIDE 0.9% FLUSH 10 ML FLUSH IV FLUSH SCH (09:42)
[2017-06-03] MEDS: TAMSULOSIN HCL 0.4 MG CAP PO SCH (09:42)
[2017-06-03] MEDS: ALLOPURINOL 300 MG TAB PO SCH (09:42)
[2017-06-03] MEDS: PANTOPRAZOLE SOD 20 MG DELAYED RELEASE TAB PO SCH (09:42)
[2017-06-03] MEDS: LACTOBACILLUS ACIDOPHILUS TAB PO SCH (09:42)
[2017-06-03] MEDS: SODIUM CHLOR 0.9% 1000 ML INJ 1,000 ML IV SCH (09:45)
[2017-06-03] MEDS ORDERED: OXYC-392 PO (11:01)
--- NOTE | 2017-06-03 11:06 | HHI.DCPOC ---
Discharge Care Plan Diagnosis: (1) Acute renal failure (2) Uropathy, obstructive Goals to Promote Your Health * To prevent worsening of your condition and complications * To maintain your health at the optimal level Directions to Meet Your Goals Take your medications as prescribed Follow your dietary instruction Follow activity as directed Keep your appointments as scheduled Take your immunizations and boosters as scheduled If your symptoms worsen call your PCP, if no PCP go to Urgent Care Center or Emergency Room Smoking is Dangerous to Your Health. Avoid second hand smoke Call the 24-hour hour crisis hotline for domestic abuse at Quan Ralph DO Jun 03, 2017 11:06
[2017-06-03] MEDS ORDERED: CEFU1TAB42 PO (11:07)
--- NOTE | 2017-06-03 11:12 | HHI.PR ---
Subjective Remarks The patient said that he felt much better and wanted to go home. He rated his pain as a 2 out of 10. He said he is urinating all the time. He was ambulating without difficulty. [facility] Discussed with nursing at the bedside. Objective Vitals Vital Signs Date Time Temp Pulse Resp B/P (MAP) Pulse Ox O2 Delivery O2 Flow Rate FiO2 06/03/17 08:00 97.0 65 18 164/82 (109) 94 06/03/17 06:45 172/76 (108) Automatic Cuff 06/03/17 05:48 73 209/109 (142) 06/02/17 20:00 98.2 74 20 132/64 (86) 94 06/02/17 16:00 98.6 79 18 173/94 (120) 97 06/02/17 12:00 99.0 74 16 144/74 (97) 97 I/O 06/02/17 06/02/17 06/02/17 06/03/17 06/03/17 06/03/17 07:00 15:00 23:00 07:00 15:00 23:00 Intake Total 1893 ml 983 ml 120 ml Output Total 250 ml Balance 1893 ml 983 ml -130 ml Intake Oral 600 ml 120 ml IV Total 1893 ml 383 ml Output Urine Total 250 ml Result Diagram: 06/03/17 0648 06/03/17 0648 Imaging Last Impressions Abdomen X-Ray 06/02/17 0600 Signed Impressions: Service Date/Time: Friday, June 02, 2017 05:40 - CONCLUSION: 1. Bilateral renal calculi are difficult to visualize. Deric Joel MD Abdomen/Pelvis CT 06/01/17 1302 Signed Impressions: Service Date/Time: Thursday, June 01, 2017 14:11 - CONCLUSION: 1. Moderate to severe right-sided hydronephrosis secondary to obstructing 6 x 9 mm densely calcified proximal ureteral calculus. Apparent second calculus more distally in the mid right ureter measuring 6 x 8 mm. 2. Multiple additional nonobstructing calyceal calculi ranging in size from 3-6 mm on the right and 2-11 mm on the left. 3. Multiple bilateral renal cysts some of which are too small to fully characterize. Largest on the left measures up to 7.9 cm and the largest on the right measures up to 2.1 cm. 4. Additional ancillary findings include colonic diverticulosis and degenerative spondylosis of the lower lumbar spine. Srini Gupta MD Objective Remarks GENERAL: This is a well-nourished, well-developed patient, in no apparent distress. SKIN: No rashes, ecchymoses or lesions. Cool and dry. HEAD: Atraumatic. Normocephalic. No temporal or scalp tenderness. EYES: Pupils equal round and reactive. Extraocular motions intact. No scleral icterus. No injection or drainage. ENT: Nose without bleeding, purulent drainage or septal hematoma. Throat without erythema, tonsillar hypertrophy or exudate. Uvula midline. Airway patent. NECK: Trachea midline. No JVD or lymphadenopathy. Supple, nontender, no meningeal signs. CARDIOVASCULAR: Regular rate and rhythm without murmurs, gallops, or rubs. RESPIRATORY: Clear to auscultation. Breath sounds equal bilaterally. No wheezes , rales, or rhonchi. GASTROINTESTINAL: Abdomen soft, nontender, nondistended. No hepato-splenomegaly , or palpable masses. No guarding. MUSCULOSKELETAL: Extremities without clubbing, cyanosis, or edema. No joint tenderness, effusion, or edema noted. NEUROLOGICAL: Awake and alert. Cranial nerves II through XII intact. Motor and sensory grossly within normal limits. Five out of 5 muscle strength in all muscle groups. Normal speech. PSYCH: Mood and affect appropriate. Medications and IVs Current Medications Medications (Trade) Dose Ordered Sig/Fahad Route Start Time Stop Time Status Last Admin Sodium Chloride 1,000 ml @ 100 mls/hr Q10H IV 06/01/17 17:45 06/03/17 09:45 (NS Flush) 2 ml UNSCH PRN IV FLUSH 06/01/17 17:45 (NS Flush) 2 ml BID IV FLUSH 06/01/17 21:00 06/03/17 09:42 (Zofran Inj) 4 mg Q6H PRN IVP 06/01/17 17:45 06/02/17 17:07 (Narcan Inj) 0.4 mg UNSCH PRN IV PUSH 06/01/17 17:45 (Zyloprim) 150 mg DAILY PO 06/02/17 09:00 06/03/17 09:42 (Lopressor) 12.5 mg BID PO 06/01/17 21:00 06/03/17 09:42 (Flomax) 0.4 mg DAILY PO 06/01/17 18:00 06/03/17 09:42 (Protonix) 20 mg DAILY PO 06/01/17 18:00 06/03/17 09:42 (Pill Splitter) 1 ea UNSCH PRN OTHER 06/01/17 18:00 (Colace) 100 mg BID PO 06/01/17 21:00 06/03/17 09:42 (Apresoline Inj) 5 mg Q4H PRN IV PUSH 06/01/17 18:15 (Lactinex) 1 tab Q12HR PO 06/01/17 21:00 06/03/17 09:42 (Morphine Inj) 4 mg Q4H PRN IV 06/02/17 13:45 06/03/17 06:05 Acetaminophen 100 ml @ 400 mls/hr Q6H IV 06/02/17 18:00 06/03/17 06:16 (Roxicodone) 10 mg Q4H PRN PO 06/02/17 18:15 06/03/17 05:14 (Roxicodone) 5 mg Q4H PRN PO 06/02/17 18:00 (Miralax) 17 gm DAILY PRN PO 06/02/17 18:00 06/02/17 20:25 A/P Problem List: (1) Uropathy, obstructive ICD Code: N13.9 - Obstructive and reflux uropathy, unspecified (2) GERD (gastroesophageal reflux disease) ICD Code: K21.9 - GERD (gastroesophageal reflux disease) Status: Acute (3) HTN (hypertension) ICD Code: I10 - HTN (hypertension) Status: Acute (4) Acute renal failure ICD Code: N17.9 - Acute kidney failure, unspecified Status: Acute (5) Coronary artery disease ICD Code: I25.10 - Atherosclerotic heart disease of [place] coronary artery without angina pectoris Assessment and Plan Uropathy Obstructive. CT showed: Moderate to severe right-sided hydronephrosis secondary to obstructing 6 x 9 mm densely calcified proximal ureteral calculus; Apparent second calculus more distally in the mid right ureter measuring 6 x 8 mm; Multiple additional nonobstructing calyceal calculi ranging in size from 3-6 mm on the right and 2-11 mm on the left; Multiple bilateral renal cysts some of which are too small to fully characterize; Largest on the left measures up to 7.9 cm and the largest on the right measures up to 2.1 cm. Urology consult appreciated. Conservative management recommended. The pt feels well and would like to go home. - IVFs. Encourage PO intake upon discharge. - s/p IV Morphine. The pt will be discharged with oxycodone. - Urine strainer. - urology follow up as an outpt. HTN Blood pressure has been elevated. Exacerbated by pain. - Continue metoprolol. - hydralazine as needed. - pain control. - follow up with PCP. Acute renal failure Likely obstructive, s/t above. Improved. - s/p IV fluids. Encourage PO intake. - repeat BMP in 2-3 days. - follow up with urology. Coronary artery disease History of cardiac bypass. - continue home regimen. PPx: SCDs Discharge Planning D/c home with outpt urology follow-up Problem Qualifiers (1) Acute renal failure: Qualified Codes: N17.9 - Acute kidney failure, unspecified Quan Ralph DO Jun 03, 2017 11:12
== END 2017-06-03 12:08 | disposition home or self-care (01) | DRG 684 ==
LOC: PHED 12:26 → PHEDA 17:21 → PH3A 18:45
PROVIDERS: ADMIT Hospitalist; ATTEND Hospitalist
DX: N17.9 Acute kidney failure, unspecified (principal); N28.1 Cyst of kidney, acquired; I10 Essential (primary) hypertension; N13.2 Hydronephrosis with renal and ureteral calculous obstruction; K21.9 Gastro-esophageal reflux disease without esophagitis; I25.10 Atherosclerotic heart disease of native coronary artery without angina pectoris; Z95.1 Presence of aortocoronary bypass graft; Z79.82 Long term (current) use of aspirin; Z87.442 Personal history of urinary calculi; N40.0 Benign prostatic hyperplasia without lower urinary tract symptoms; M10.9 Gout, unspecified; E78.5 Hyperlipidemia, unspecified; K59.00 Constipation, unspecified
CPT/HCPCS: 74000; 74177; 80048; 80053; 81001; 83605; 83690; 83735; 85025; 85027; 96361; 96374; 96375; 96376; J0131; J2270; J2405; J7030; Q9967